=== PATIENT | female | born 1970 | race Caucasian/White ===

== ENCOUNTER 2016-08-09 09:41 | Emergency (ER) | payer OTHER ==
--- NOTE | ~2016-08-09 | CR229 ---
[facility]. [facility] A Service of [facility] RADIOLOGY TEXT RESULTS PATIENT: CAMILA HOANG LOCATION: SED : 66 UNIT #: [id number] AGE: [address]: Keny Katz MD SEX: F ORDER DR: [id number] [address] [address] [id number] E MR#: [id number] Acc #: [id number] NAME: CAMILA HOANG : 1970 SEX: F STUDY DATE/TIME: 08/09/2016 10:13 UNIT: SED ROOM: STUDY DESCRIPTION: CR Shoulder Min 2 View Lt Attending Physician: Keny Katz M.D. Ordering Physician: Kney Katz M.D. Primary Care Physician: Manuel Simon M.D. MEDICAL IMAGING REPORT This report is preliminary unless electronic signature is present. EXAM Left shoulder, 3 views. INDICATIONS Left shoulder pain for 1 week. COMPARISON Study is compared with a chest x-ray from 05/14/2012. FINDINGS There is no fracture or dislocation. Mild narrowing of the AC joint. There is a rounded density in the upper right paratracheal region, which is unchanged since 2012. This may be prominent vasculature or possibly a portion of the thyroid gland. It may represent a paratracheal lesion. Again, it is unchanged since 2012 and the stability is reassuring. IMPRESSION 1. No acute findings involving the left shoulder. 2. Rounded right paratracheal opacity is again noted and is unchanged compared with the chest x-ray from 2012. The etiology is uncertain; however, the fact that it is unchanged over the span of 4 years suggests benignity. Dictated by... Yung Loomis M.D. THIS IS AN ELECTRONICALLY VERIFIED REPORT Yung Loomis M.D. at 08/10/2016 10:30 AM DAVID/jose TD: 08/09/2016 12:32 JOB #: [id number] [facility] A Service of [facility] & [facility] RADIOLOGY TEXT RESULTS PATIENT: CAMILA HOANG LOC[place]: [facility] [place] 66 UNIT #: [id number] AGE: [address]: Keny Katz MD SEX: F ORDER DR: MEDICAL IMAGING REPORT Page 1 of 1
--- NOTE | ~2016-08-09 | CR58 ---
[facility]. [facility] A Service of [facility] & [facility] RADIOLOGY TEXT RESULTS PATIENT: CAMILA HOANG LOCATION: SED : 66 UNIT #: [id number] AGE: [address]: Keny Katz MD SEX: F ORDER DR: [id number] [address] [address] [id number] E MR#: [id number] Acc #: [id number] NAME: CAMILA HOANG : 1970 SEX: F STUDY DATE/TIME: 08/09/2016 10:13 UNIT: SED ROOM: STUDY DESCRIPTION: CR Cervical Spine 2 or 3 Views Attending Physician: Keny Katz M.D. Ordering Physician: Keny Katz M.D. Primary Care Physician: Manuel Simon M.D. MEDICAL IMAGING REPORT This report is preliminary unless electronic signature is present. EXAM Cervical spine, 5 views. INDICATIONS Left shoulder and cervical spine pain for 1 week. COMPARISON Comparison is made with 05/31/08. FINDINGS There is grade 1 anterolisthesis of C4 on C5. There is moderate disc space narrowing at C5-6 and C6-7 with anterior osteophyte formation. No prevertebral swelling. Odontoid intact and the lateral masses are well aligned. Multilevel facet hypertrophy. IMPRESSION Mid cervical spine degenerative changes. These have progressed since the study in 2008. No acute finding. Dictated by... Yung Loomis M.D. THIS IS AN ELECTRONICALLY VERIFIED REPORT Yung Loomis M.D. at 08/11/2016 7:51 AM DAVID/jose TD: 08/09/2016 12:27 JOB #: [id number] MEDICAL IMAGING REPORT Page 1 of 1
[~2016-08-09 09:41] MED LIST: ACETAMINOPHEN PO; BACTRIM DS TABL1 TA1 PO; BENADRYL25 MG PO; DAKIN'S MODIF1000 ML EXT; FLEXERIL PO; FLEXERIL10 MG PO; IBUPROFEN800 MG PO; KETOPROFEN PO; LO-OVRAL-281 EACH PO; LORTAB 5/500 TA1 TA1 PO; MEDROL PO; MOBIC PO; NAPROSYN500 MG PO; NO MEDICATIONS; PERCOCET 51 UDTAB 5/ PO; PHENERGAN25 MG PO; SILVADENE TOP; ULTRAM PO; ZYVOX600 MG PO
== END 2016-08-09 11:19 | disposition home or self-care (01) ==
LOC: SED 09:41
DX: S46.912A Strain of unspecified muscle, fascia and tendon at shoulder and upper arm level, left arm, initial encounter (principal); Z88.0 Allergy status to penicillin; Z88.2 Allergy status to sulfonamides; X58.XXXA Exposure to other specified factors, initial encounter; Y92.009 Unspecified place in unspecified non-institutional (private) residence as the place of occurrence of the external cause
CPT/HCPCS: 72040; 73030; 96372; 99283; J1885